=== PATIENT | female | born 2000 | race Two or more races ===

== ENCOUNTER 2019-02-17 02:59 | Emergency (ER) | payer OTHER ==
[2019-02-17] MEDS ORDERED: PROCHLORPERAZINE INJ 5 MG/ML 2 ML VIAL IM ONE (03:13)
--- NOTE | 2019-02-17 03:19 | ED ---
Substance Abuse/Use - HPI Summary HPI Summary: This patient is a 18 year old female presenting to [facility] with a chief complaint of alcohol intoxication. She states she drank too much champagne. She reports nausea and vomiting. She was celebrating becoming a sister. She is alert and oriented. - History Of Current Complaint Chief Complaint: EDSubstanceAbuse Stated Complaint: ETOH PER EMS Time Seen by Provider: 02/17/19 03:10 Hx Obtained From: Patient Onset/Duration of Drug/ETOH Abuse: Hours Overdose Characteristics: Oral Severity Initially: Mild Severity Currently: Mild Associated Signs And Symptoms: Nausea, Vomiting - Allergies/Home Medications Allergies/Adverse Reactions: Allergies Allergy/AdvReac Type Severity Reaction Status Date / Time No Known Allergies Allergy Verified 02/17/19 03:08 PMH/Surg Hx/FS Hx/Imm Hx Endocrine/Hematology History: Denies: Hx Anemia Cardiovascular History: Denies: Hx Hypertension Infectious Disease History: No Infectious Disease History: Denies: Traveled Outside the [place] in Last 30 Days - Family History Known Family History: Negative: Blood Disorder - Social History Occupation: Student Alcohol Use: Occasionally Review of Systems Negative: Fever Positive: Vomiting, Nausea All Other Systems Reviewed And Are Negative: Yes Physical Exam - Summary Physical Exam Summary: VITAL SIGNS: Reviewed. GENERAL: Patient is a well-developed and nourished FEMALE who is lying comfortable in the stretcher. Patient is nauseous and vomiting. HEAD AND FACE: No signs of trauma. No ecchymosis, hematomas or skull depressions. No sinus tenderness. EYES: PERRLA, EOMI x 2, No injected conjunctiva, no nystagmus. EARS: Hearing grossly intact. Ear canals and tympanic membranes are within normal limits. MOUTH: Oropharynx within normal limits. NECK: Supple, trachea is midline, no adenopathy, no JVD, no carotid bruit, no c- spine tenderness, neck with full ROM. CHEST: Symmetric, no tenderness at palpation LUNGS: Clear to auscultation bilaterally. No wheezing or crackles. CVS: Regular rate and rhythm, S1 and S2 present, no murmurs or gallops appreciated. ABDOMEN: Soft, non-tender. No signs of distention. No rebound no guarding, and no masses palpated. Bowel sounds are normal. EXTREMITIES: FROM in all major joints, no edema, no cyanosis or clubbing. NEURO: Alert and oriented x 3. No acute neurological deficits. Speech is normal and follows commands. SKIN: Dry and warm Triage Information Reviewed: Yes Vital Signs On Initial Exam: Initial Vitals Temp Pulse Resp BP Pulse Ox 96.8 F 101 18 131/63 99 02/17/19 03:06 02/17/19 03:06 02/17/19 03:06 02/17/19 03:06 02/17/19 03:06 Vital Signs Reviewed: Yes Diagnostics - Vital Signs Vital Signs Temp Pulse Resp BP Pulse Ox 02/17/19 03:06 96.8 F 101 18 131/63 99 - Laboratory Lab Statement: Any lab studies that have been ordered have been reviewed, and results considered in the medical decision making process. Course/Dx - Course Course Of Treatment: This patient is a 18 year old female presenting to [facility] with a chief complaint of alcohol intoxication. She has become sober and is ready to go home. A plan for discharge was discussed with the patient and she was agreeable with this plan. - Diagnoses Provider Diagnoses: Alcohol intoxication Discharge - Sign-Out/Discharge Documenting (check all that apply): Patient Departure - Discharge Patient Received Moderate/Deep Sedation with Procedure: No - Discharge Plan Condition: Stable Disposition: HOME Patient Education Materials: Alcohol Intoxication (ED) Referrals: [facility] [place] [facility] REFERRAL [Outside] Additional Instructions: Return to ED with any new or worsening symptoms. - Attestation Statements Document Initiated by Scribe: Yes Documenting Scribe: Wale Anthony Provider For Whom Scribe is Documenting (Include Credential): Sj Cabrera MD Scribe Attestation: IWale, scribed for Sj Cabrera MD on 02/17/19 at 0636. Status of Scribe Document: Ready
[2019-02-17 07:27] VITALS: BP 136/80
== END 2019-02-17 07:24 | disposition home or self-care (01) ==
LOC: ED 02:59
DX: F10.129 Alcohol abuse with intoxication, unspecified (principal); Y90.9 Presence of alcohol in blood, level not specified
CPT/HCPCS: 96374; 99281; J0780